=== PATIENT | female | born 1995 | race Caucasian/White ===

== ENCOUNTER 2022-02-09 21:06 | Emergency (ER) | payer MEDICAID | END 2022-02-09 23:42 | disposition home or self-care (01) | LOC: MERGE 21:06 → VM.ED 21:06 | DX: R51.9 Headache, unspecified (principal); Z91.030 Bee allergy status; Z91.048 Other nonmedicinal substance allergy status; Z79.02 Long term (current) use of antithrombotics/antiplatelets; Y04.0XXA Assault by unarmed brawl or fight, initial encounter | CPT/HCPCS: 70450; 99285 ==

== ENCOUNTER 2022-03-20 19:29 | Emergency (ER) | payer MEDICAID ==
[2022-03-20 21:20] LABS: STREP A BY PCR NOT DETECTED (NOT DETECT)
[2022-03-20 21:32] LABS: CORONAVIRUS COVID-19 NAA NEGATIVE (NEGATIVE)
[2022-03-20] MEDS: Take Home: Oseltamivir 75 MG Cap, 2 Cap Pack PO ONE (22:00)
== END 2022-03-20 22:10 | disposition home or self-care (01) ==
LOC: VM.ED 19:29
DX: J10.1 Influenza due to other identified influenza virus with other respiratory manifestations (principal); I10 Essential (primary) hypertension; J45.909 Unspecified asthma, uncomplicated; Z91.048 Other nonmedicinal substance allergy status; Z91.030 Bee allergy status; Z79.02 Long term (current) use of antithrombotics/antiplatelets; Z79.899 Other long term (current) drug therapy; Z20.822 Contact with and (suspected) exposure to COVID-19
CPT/HCPCS: 0240U; 87651-QW; 99283; A9270-GY